=== PATIENT | male | born 2000 | race Caucasian/White ===

== ENCOUNTER 2022-09-01 15:19 | Emergency (ER) | payer SELFPAY ==
[~2022-09-01] VITALS: Ht 175.3 cm; Wt 67.1 kg
[2022-09-01 15:25] VITALS: O2SAT 98
[2022-09-01] MEDS ORDERED: LIDOCAINE HCL 1% 20ML VIAL (Pyxis) INJ INFIL ONE (16:00)
[2022-09-01] MEDS ORDERED: TETANUS, DIPHTHERIA, PERTUSSIS VAC/PF 0.5ML (>10YR OLD) IM ONE (16:45)
[2022-09-01 17:03] VITALS: BP 120/67; PULSE 84; RESP 20; TEMP 97.8
== END 2022-09-01 17:07 | disposition home or self-care (01) ==
LOC: ER 15:19
DX: S61.511A Laceration without foreign body of right wrist, initial encounter (principal); J45.909 Unspecified asthma, uncomplicated; W25.XXXA Contact with sharp glass, initial encounter; Y93.89 Activity, other specified; Y92.89 Other specified places as the place of occurrence of the external cause; Y99.8 Other external cause status
CPT/HCPCS: 12001; 90471; 90715; 99283